=== PATIENT | female | born 1970 ===

== ENCOUNTER 2016-10-10 15:22 | Observation (INO) | payer MEDICARE ==
[2016-10-10 15:50] VITALS: TEMP 97.5
[2016-10-10] MEDS ORDERED: Sodium Chloride 0.9% 1,000 ML IV ONE (15:51)
--- NOTE | 2016-10-10 15:58 | C.PDOC ---
History Of Present Illness 45 y/o female with Hx of Rheumatoid Arthritis presents to ED for substance abuse. As per patient heroin and cocaine were snorted this morning. Ems arrived to patient and gave Narcan nasally. pt reports used narcotics for recreational intentions. Patient denies suicidal or homicidal ideation. No other complaints at this time. Time Seen by Provider: 10/10/16 15:35 Chief Complaint (Nursing): Substance Abuse History Per: Patient, EMS History/Exam Limitations: no limitations Past Medical History Reviewed: Historical Data, Nursing Documentation, Vital Signs Vital Signs: Last Vital Signs Temp 97.5 F L 10/10/16 15:38 Pulse 87 10/10/16 18:35 Resp 16 10/10/16 18:35 BP 103/58 L 10/10/16 18:35 Pulse Ox 92 L 10/10/16 19:42 - Medical History PMH: COPD, Depression, Rheumatoid Arthritis Family History: States: No Known Family Hx - Social History Hx Alcohol Use: Yes Hx Substance Use: Yes - Immunization History Hx Tetanus Toxoid Vaccination: No Hx Influenza Vaccination: No Hx Pneumococcal Vaccination: No Review Of Systems Except As Marked, All Systems Reviewed And Found Negative. Constitutional: Negative for: Fever, Chills, Weakness Cardiovascular: Negative for: Chest Pain Gastrointestinal: Negative for: Nausea, Vomiting, Diarrhea Skin: Negative for: Rash Neurological: Negative for: Weakness, Headache, Dizziness Psych: Negative for: Suicidal ideation Physical Exam - Physical Exam Appears: Non-toxic, No Acute Distress Skin: Normal Color, Warm Head: Atraumatic, Normacephalic Eye(s): bilateral: Abnormal Pupil (3 millimeter bilateral) Oral Mucosa: Moist Neck: Normal ROM Cardiovascular: Rhythm Regular Respiratory: Normal Breath Sounds, No Rales, No Rhonchi, No Wheezing Gastrointestinal/Abdominal: Soft, No Tenderness, No Distention, No Rebound Extremity: Normal ROM Neurological/Psych: Oriented x3, Normal Speech, Normal Cognition ED Course And Treatment - Laboratory Results Result Diagrams: 10/10/16 16:09 10/10/16 16:09 ECG Rhythm: Sinus Rhythm ECG Interpretation: Normal Interpretation Of EC O2 Sat by Pulse Oximetry: 92 (Room air ) Medical Decision Making Medical Decision Makin:00pm - Patient is on observation and Labs are ordered pt observed. now awake alert, given referal for detox as no beds avail. urine treated. ambulatory with steady gait. no repeat need for narcan. labs unremarkable ED OBSERVATION Date of observation admission: 10/10/16 Time of observation admission: 17:07 - Observation admission statement Patient is being placed in observation because:: Pending sobriety - Goals of Observation Goals of observation are:: Sobriety Disposition - Disposition Disposition: HOME/ ROUTINE Disposition Time: 19:41 Condition: STABLE - Clinical Impression Clinical Impression: Overdose, UTI (urinary tract infection)
[2016-10-10 16:22] LABS: BASO % 0.1 % (0.0-2.0); HEMATOCRIT 37.7 % (34.0-47.0); LYMPH # 0.9 K/uL (1.0-4.3); LYMPH % 9.1 % (20.0-40.0); MEAN CELL VOLUME 95.3 fL (81.0-99.0); MEAN CORPUSCULAR HEMOGLOBIN 32.4 pg (27.0-31.0); MEAN PLATELET VOLUME 9.9 fL (7.2-11.7); MONO # 0.4 K/uL (0.0-0.8); MONO % 4.4 % (0.0-10.0); PLATELET COUNT 171 K/uL (130-400); RED CELL DISTRIBUTION WIDTH 13.3 % (11.5-14.5); WHITE BLOOD COUNT 9.6 K/uL (4.8-10.8)
[2016-10-10 16:28] VITALS: RESP 16
[2016-10-10 16:43] LABS: CHLORIDE 102 mmol/L (98-107)
[2016-10-10 16:44] LABS: SODIUM 135 mmol/L (132-148)
[2016-10-10 16:46] LABS: ALB/GLOB RATIO 1.6 (1.0-2.1); AST/SGOT 77 U/L (14-36); BILIRUBIN,TOTAL 0.7 mg/dL (0.2-1.3); CARBON DIOXIDE 23 mmol/L (22-30); GFR AFRICAN-AMERICAN > 60
[2016-10-10 16:47] LABS: ALCOHOL SERUM < 10 mg/dl (0-10); ALKALINE PHOSPHATASE 76 U/L (38-126); ALT/SGPT 40 U/L (9-52); BLOOD UREA NITROGEN 22 mg/dL (7-17); CALCIUM 8.3 mg/dl (8.6-10.4); GLUCOSE,RANDOM 152 mg/dL (65-105)
[2016-10-10 17:10] LABS: RBC URINE 19 /hpf (0-3); TRANSITIONAL EPITHIAL < 1 /hpf (0-3); URINE BACTERIA OCC (<OCC); URINE BILIRUBIN NEGATIVE (NEGATIVE); URINE BLOOD 2+ (NEGATIVE); URINE COLOR Yellow (YELLOW); URINE GLUCOSE (UA) NORMAL (Normal); URINE KETONE TRACE mg/dL (NEGATIVE); URINE LEUKOCYTE ESTERASE NEG Leu/uL (Negative); URINE PROTEIN 1+ mg/dL (NEGATIVE); URINE UROBILINOGEN NORMAL mg/dL (0.2-1.0); WBC URINE 2 /hpf (0-5)
[2016-10-10 17:39] VITALS: BP 103/58
[2016-10-10 17:48] LABS: NEUTROPHIL 79 % (50-75); TOTAL CELLS COUNTED 100
[2016-10-10 18:36] VITALS: PULSE 87
[2016-10-10 19:43] VITALS: O2SAT 92
--- NOTE | 2016-10-13 10:29 | CARD ---
APPROVED REPORT EKG Measurement Heart [id number] <Conclusion> Normal sinus rhythm Normal ECG
== END 2016-10-10 19:41 | disposition home or self-care (01) ==
LOC: C.ER 15:22 → C.9OBSV 17:02
PROVIDERS: ADMIT Student in an Organized Health Care Education/Training Program; ATTEND Student in an Organized Health Care Education/Training Program
DX: F14.10 Cocaine abuse, uncomplicated (principal); N39.0 Urinary tract infection, site not specified; M06.9 Rheumatoid arthritis, unspecified
CPT/HCPCS: 80053; 81001; 84703; 85025; 99285; G0378; G0480; J7040